=== PATIENT | male | born 1960 | race Caucasian/White ===

== ENCOUNTER 2018-05-23 09:49 | Day surgery (SDC) | payer MEDICARE, MEDICAID ==
[2018-05-22 16:43] VITALS: BMI 32.4
[2018-05-23] MEDS ORDERED: Lidocaine 1% 20 MG/2 ML PF AMP ONE (11:21)
[2018-05-23] MEDS ORDERED: Pilocarpine 1% Opht Soln ONE (11:21)
[2018-05-23] MEDS ORDERED: EPINEPHrine 1 mg/ml (1:1000) Inj ONE (11:21)
[2018-05-23] MEDS ORDERED: CA CL/K CL/NA CL 500 ML IR ONE (11:22)
[2018-05-23] MEDS ORDERED: Chondroitin/Hyaluronate Opth Syringe KIT (0.55 ml-0.5 ml) IO ONE (11:22)
[2018-05-23] MEDS ORDERED: STERILE IRRIGATING SOLUTION 45 ML IR ONE (11:22)
[2018-05-23] MEDS ORDERED: Carbachol 0.01% IO ONE (11:23)
[2018-05-23] MEDS ORDERED: Flurbiprofen 0.03% Opht SOLN OU ONE (12:00)
[2018-05-23] MEDS ORDERED: Phenylephrine 2.5% Opht Soln OD ONE (12:06)
[2018-05-23] MEDS ORDERED: Tropicamide 1% Opht 150 DROP/15 ML OD ONE (12:15)
[2018-05-23 14:35] VITALS: RESP 18
[2018-05-23] MEDS ORDERED: Midazolam 2 MG/2 ML VIAL ONE (14:57)
[2018-05-23] MEDS ORDERED: Tetracaine 0.5% Ophth 2 ML BOTTLE OD ONE (15:20)
[2018-05-23] MEDS ORDERED: Povidone Iodine Topical 10% Sol TOP ONE (15:21)
[2018-05-23] MEDS ORDERED: BSS 15 ML SOL IR ONE (15:23)
[2018-05-23] MEDS ORDERED: Pilocarpine 1% Opht Soln OD ONE (15:24)
[2018-05-23] MEDS ORDERED: Maxitrol Opht Susp OD ONE (15:25)
[2018-05-23] MEDS ORDERED: Lactated Ringer's 1,000 ML IV ONE (15:26)
[2018-05-23 17:01] VITALS: O2SAT 99
[2018-05-23 17:03] VITALS: BP 136/78; PULSE 78; TEMP 98.5
--- NOTE | 2018-05-24 12:42 | OP ---
PROCEDURE DATE: 05/23/2018 SURGEON: VINCENT FRANCISCO MD ANESTHESIOLOGIST: TIMOTHY LUNA MD ANESTHESIA: LOCAL / IV SEDATION PREOPERATIVE DIAGNOSIS: CATARACT RIGHT EYE. POSTOPERATIVE DIAGNOSIS: CATARACT RIGHT EYE. OPERATION: CLEAR CORNEAL PHACOEMULSIFICATION WITH LENS IMPLANT RIGHT EYE. PREPARATION AND PROCEDURE: After the patient was prepped and draped in the usual manner for sterile ophthalmic surgery, local IV sedation was administered; eye seals were applied to the upper and lower lid margins and an adult wire lid speculum was placed within the lids. Under microsurgical control, a two-step clear corneal incision was made into the anterior chamber. The initial incision was perpendicular to the corneal plane. The second incision with the keratome was placed at a 45-degree angle to the first incision. One cc of one percent Xylocaine MPF was instilled into the anterior chamber to achieve proper intraocular anesthesia. At this time, the Viscoelastic was injected into the anterior chamber for protection of the endothelium and for maintenance of the chamber depth. A 360-degree continuous curvilinear capsulorrhexis was performed using a pre-bent 25-gauge needle. Hydrodissection and hydrodelineation were performed using a Valle cannula and balanced salt solution. Utilizing the tip of the Valle cannula, the nucleus was rotated freely within the capsular bag. A standard one-handed phacoemulsification was utilized at this time for sculpting and rotating of the nucleus. The nucleus was fragmented in its entirety and aspirated without any consequence. A standard I&A was carried out for the residual cortical material. No residual material was noted within the capsular bag. The posterior capsule was noted to be clear. Additional Viscoelastic was injected into the capsular bag in preparation for lens implantation. After this has been satisfactorily achieved the intraocular lens injected through the corneal incision into the capsular bag. The intraocular lens was manipulated until it was properly oriented and the Viscoelastic was evacuated from the capsular bag and anterior chamber. The anterior chamber was reformed with balanced salt solution. The corneal incision was irrigated with BSS. The intraocular pressure was found to be within normal limits. This terminated the procedure. The speculum and lid drapes were removed. TobraDex ophthalmic suspension and Pilocarpine 1% drops one drop was applied to the eye. POSTOPERATIVE CONDITION: The patient was brought to the Post anesthesia Recovery area with stable vital signs. DVINCENT OROZCO MDD
== END 2018-05-23 17:14 | disposition home or self-care (01) ==
LOC: H.OPSURG 09:49
PROVIDERS: ATTEND Ophthalmology
DX: H25.811 Combined forms of age-related cataract, right eye (principal); Z86.73 Personal history of transient ischemic attack (TIA), and cerebral infarction without residual deficits; E11.9 Type 2 diabetes mellitus without complications; E78.5 Hyperlipidemia, unspecified; I10 Essential (primary) hypertension; F32.9 Major depressive disorder, single episode, unspecified; K21.9 Gastro-esophageal reflux disease without esophagitis
CPT/HCPCS: 66984; 82948; J0171; J2250; J3010; J7120

== ENCOUNTER 2018-06-06 13:53 | Emergency (ER) | payer MEDICARE, MEDICAID ==
[2018-06-06 13:53] VITALS: BMI 30.7
[2018-06-06 13:57] VITALS: PULSE 85; RESP 16; O2SAT 100
[2018-06-06] MEDS ORDERED: Sodium Chloride 0.9% 1,000 ML IV STA (14:55)
--- NOTE | 2018-06-06 15:09 | ED PDOC ---
Hyperglycemia/Hypoglycemia Time Seen by Provider: 06/06/18 14:47 Chief Complaint (Nursing): High Blood Sugar Chief Complaint (Provider): High Blood Sugar History Per: Patient History/Exam Limitations: no limitations Onset/Duration Of Symptoms: Hrs Current Symptoms Are (Timing): Still Present : The patient does not have any of the infectious symptoms listed except for those marked. Additional Complaint(s): Patient is a 58 y/o male with a PMHx of HTN, diabetes, dementia, and depression who presents to the ED for evaluation of high blood pressure onset earlier today. Patient lives in a snf and went to the hospital for same day ca taract surgery but the hospital was unable to proceed with surgery due to high blood sugar levels. The patient's snf nursery hand states that the patient has been compliant with his medication, even this morning. Patient denies hunger, urinary symptoms, dizziness, nausea, and stomach pain. PCP: Dr. Nam Mcdaniel Past Medical History Reviewed: Historical Data, Nursing Documentation, Vital Signs Vital Signs: Last Vital Signs Temp 97.3 F L 06/06/18 13:54 Pulse 85 06/06/18 13:54 Resp 16 06/06/18 13:54 BP 164/94 H 06/06/18 13:54 Pulse Ox 100 06/06/18 13:54 - Medical History PMH: Dementia, Depression, HTN Denies: Chronic Kidney Disease - Surgical History Other surgeries: peniel implant - Family History Family History: States: No Known Family Hx - Living Arrangements Living Arrangements: Senior Living/Assist Lvng - Immunization History Hx Tetanus Toxoid Vaccination: Yes Hx Influenza Vaccination: Yes Hx Pneumococcal Vaccination: Yes - Home Medications Home Medications: Ambulatory Orders Medication Instructions Recorded Ambien 5 mg PO HS 06/06/13 Clonidine 0.1 mg PO Q8 06/06/13 Fenofibrate 54 mg PO DAILY 06/06/13 Gabapentin 300 mg PO BID 06/06/13 Januvia 50 mg PO DAILY 06/06/13 Levemir 8 unit SC QAM 06/06/13 Levemir 20 unit SC HS 06/06/13 Lexapro 10 mg PO DAILY 06/06/13 Lovaza 1 gm PO BID 06/06/13 Nasonex 50 mg INH BID 06/06/13 Norvasc 10 mg PO DAILY 06/06/13 Novolog SC 06/06/13 Plavix 75 mg PO DAILY 06/06/13 Protonix 40 mg PO DAILY 06/06/13 Simvastatin 10 mg PO DAILY 06/06/13 Travatan 2.5 ml 06/06/13 - Allergies Allergies/Adverse Reactions: Allergies Allergy/AdvReac Type Severity Reaction Status Date / Time No Known Allergies Allergy Verified 06/06/18 13:54 Review of Systems ROS Statement: Except As Marked, All Systems Reviewed And Found Negative (as per HPI) Constitutional: Negative for: Other (Hungry) Gastrointestinal: Negative for: Nausea, Abdominal Pain Genitourinary Male: Negative for: Frequency Neurological: Negative for: Dizziness Physical Exam - Reviewed Nursing Documentation Reviewed: Yes Vital Signs Reviewed: Yes - Physical Exam Appears: Positive for: Well, No Acute Distress Head Exam: Positive for: ATRAUMATIC, NORMOCEPHALIC Skin: Positive for: Warm, Dry Eye Exam: Positive for: EOMI, PERRL ENT: Positive for: Pharynx Is (clear), Other (Tacky Mucous Membranes) Neck: Positive for: Painless ROM, Supple Cardiovascular/Chest: Positive for: Regular Rate, Rhythm. Negative for: Murmur Respiratory: Positive for: Normal Breath Sounds. Negative for: Respiratory Distress Gastrointestinal/Abdominal: Positive for: Soft. Negative for: Tenderness Back: Positive for: Normal Inspection Extremity: Negative for: Deformity Lymphatic: Negative for: Adenopathy Neurological/Psych: Positive for: Alert, Oriented. Negative for: Motor/Sensory Deficits - Laboratory Results Result Diagrams: 06/06/18 15:15 06/06/18 15:15 - ECG O2 Sat by Pulse Oximetry: 100 (RA) Pulse Ox Interpretation: Normal Medical Decision Making Medical Decision Making: Time: 1448 Impression: Hyperglycemia DDx includes but not limited to dehydration, electrolyte abnormality, DKA, and renal insufficiency. Plan: VBG CMP Magnesium Phosphorus Urine Dipstick CBC Glucose, POC IV Fluids Glucose, Blood, POC Time: 1745 Labs demonstrate mild elevated glucose and elevated BUN creatinine levels consistent with hydration. Given 1 L saline with improvement of glucose levels. Patient stable for discharge back to snf. Scribe Attestation: Documented by Gustabo Harrison, acting as a scribe for Giselle Gerardo MD. Provider Scribe Attestation: All medical record entries made by the Scribe were at my direction and personally dictated by me. I have reviewed the chart and agree that the record accurately reflects my personal performance of the history, physical exam, medical decision making, and the department course for this patient. I have also personally directed, reviewed, and agree with the discharge instructions and disposition. Disposition - Clinical Impression Clinical Impression: Hyperglycemia - Disposition Referrals: Nam Mcdaniel MD [Medical Doctor] - Disposition: Other Institution Disposition Time: 17:50 Condition: STABLE Additional Instructions: CONTINUE MEDICINES PRESCRIBED Instructions: Dehydration, Adult (DC), Hyperglycemia, Adult (DC)
[2018-06-06 16:23] LABS: BASO % 0.4 % (0.0-2.0); EOS # 0.3 K/uL (0.0-0.7); EOS % 3.3 % (0.0-4.0); HEMOGLOBIN 11.5 g/dL (12.0-18.0); LYMPH # 2.4 K/uL (1.0-4.3); MEAN CELL VOLUME 88.1 fl (80.0-94.0); MEAN CORPUSCULAR HEMOGLOBIN 28.6 pg (27.0-31.0); MEAN CORPUSCULAR HGB CONC 32.5 g/dL (33.0-37.0); MEAN PLATELET VOLUME 7.5 fl (7.2-11.7); MONO # 0.7 K/uL (0.0-0.8); MONO % 7.8 % (0.0-10.0); NEUT # 5.9 K/uL (1.8-7.0); NEUT % 62.5 % (50.0-75.0); RBC 4.02 Mil/uL (4.40-5.90); RED CELL DISTRIBUTION WIDTH 14.4 % (11.5-14.5); WHITE BLOOD COUNT 9.4 K/uL (4.8-10.8)
[2018-06-06 16:54] LABS: ALBUMIN 3.9 g/dL (3.5-5.0); CALCIUM 9.6 mg/dL (8.4-10.2)
[2018-06-06 18:25] VITALS: BP 150/82; TEMP 97
[2018-06-07 08:10] LABS: VENOUS BLOOD GAS BASE EXCESS 1.8 mmol/L (0.0-2.0); VENOUS BLOOD GAS PCO2 53 mmHg (40-60); VENOUS BLOOD GAS PO2 22 mm/Hg (30-55); VENOUS BLOOD PH 7.34 (7.32-7.43)
== END 2018-06-06 18:41 | disposition home or self-care (01) ==
LOC: H.ER 13:53
DX: E11.9 Type 2 diabetes mellitus without complications (principal); Z86.59 Personal history of other mental and behavioral disorders; I10 Essential (primary) hypertension; Z79.4 Long term (current) use of insulin
CPT/HCPCS: 80053; 82803; 82948; 83735; 84100; 85025; 99283; J7030

== ENCOUNTER 2018-06-13 10:37 | Day surgery (SDC) | payer MEDICARE, MEDICAID ==
[2018-06-13 11:52] VITALS: RESP 18
[2018-06-13 11:54] VITALS: BMI 33.6
[2018-06-13] MEDS ORDERED: Phenylephrine 2.5% Opht Soln OS SCH (12:00)
[2018-06-13] MEDS ORDERED: Tropicamide 1% Opht 150 DROP/15 ML OS SCH (12:00)
[2018-06-13] MEDS ORDERED: Flurbiprofen 0.03% Opht SOLN OS SCH (12:00)
[2018-06-13] MEDS ORDERED: Tetracaine 0.5% Ophth 2 ML BOTTLE ONE (12:04)
[2018-06-13] MEDS ORDERED: EPINEPHrine 1 mg/ml (1:1000) Inj ONE (12:04)
[2018-06-13] MEDS ORDERED: Maxitrol Opht Susp ONE (12:04)
[2018-06-13] MEDS ORDERED: Pilocarpine 1% Opht Soln ONE (12:05)
[2018-06-13] MEDS ORDERED: [UNRECOGNIZED DRUG - OTHER] IR ONE (12:05)
[2018-06-13] MEDS ORDERED: CA CL/K CL/NA CL 500 ML IR ONE (12:05)
[2018-06-13] MEDS ORDERED: Lidocaine 1% 20 MG/2 ML PF AMP ONE (12:05)
[2018-06-13] MEDS ORDERED: Povidone Iodine 5% Opht SOLUTION ONE (12:06)
[2018-06-13] MEDS ORDERED: Chondroitin/Hyaluronate Opth Syringe KIT (0.55 ml-0.5 ml) IO ONE ×2 (12:06→14:27)
[2018-06-13] MEDS ORDERED: Carbachol 0.01% IO ONE ×2 (12:06→14:27)
[2018-06-13] MEDS ORDERED: Lactated Ringer's 1,000 ML IV ONE (12:23)
[2018-06-13] MEDS ORDERED: Phenylephrine 2.5% Opht Soln OS ONE (12:30)
[2018-06-13] MEDS ORDERED: Tropicamide 1% Opht 150 DROP/15 ML LEFTEYE ONE (12:30)
[2018-06-13] MEDS ORDERED: Flurbiprofen 0.03% Opht SOLN OS ONE (12:30)
[2018-06-13] MEDS ORDERED: Midazolam 2 MG/2 ML VIAL ONE (14:16)
[2018-06-13] MEDS ORDERED: Neomycin/Polymyxin B Sulfates Sol for Irrigation 1 ml Amp IR ONE (14:27)
[2018-06-13] MEDS ORDERED: Tetracaine 0.5% Ophth 2 ML BOTTLE OU ONE (14:27)
[2018-06-13] MEDS ORDERED: Povidone Iodine 5% Opht SOLUTION OU ONE (14:27)
[2018-06-13] MEDS ORDERED: BSS 15 ML SOL IR ONE (14:27)
[2018-06-13] MEDS ORDERED: Lidocaine 2% PF (10 ml) Amp INJ ONE (14:27)
[2018-06-13 17:21] VITALS: BP 142/91; PULSE 94; TEMP 97.7; O2SAT 98
--- NOTE | 2018-06-14 09:31 | OP ---
PROCEDURE DATE: 06/13/2018 SURGEON: VINCENT FRANCISCO MD ANESTHESIOLOGIST: MARY CLINE MD ANESTHESIA: LOCAL / IV SEDATION PREOPERATIVE DIAGNOSIS: CATARACT LEFT EYE. POSTOPERATIVE DIAGNOSIS: CATARACT LEFT EYE. OPERATION: CATARACT EXTRACTION WITH A POSTERIOR LENS IMPLANT (PHACOEMULSIFICATION) AND ANTERIOR VITRECTOMY LEFT EYE. PREPARATION AND PROCEDURE: After facial akinesia and retrobulbar block were induced, the patient was prepped and draped in the usual manner for sterile ophthalmic surgery. An adult wire lid speculum was placed into the lid of the eye. A #4-0 silk suture was placed into the belly of the superior rectus muscle for fixation of the globe. A mini-peritomy at the 12 o'clock position was fashioned with a sharp tipped Kai scissor and atraumatic forceps. The fornix-based mini-peritomy was reflected superiorly and hemostasis was obtained with wet field bipolar cautery. A three-step incision was fashioned using a crescent blade, 2.5 mm posterior to the surgical sulcus. The anterior chamber was entered using the 3.2 blade. Viscoelastic was injected into the anterior chamber for protection of the cornea endothelium and maintenance of the anterior chamber depth. An anterior capsulotomy was performed in a capsular fashion using a pre-bent 25 gauge needle. After the capsulotomy was finished, hydrodissection and hydrodelamination was carried out. Using the Phaco-Emulsifier hand piece, phacoemulsification was carried out at this time. During phacoemulsification, a rent was noted in the posterior capsule with prolapse of syneretic vitreous into the anterior chamber. An anterior vitrectomy was carried out with the disposable Cavitron anterior vitrectomy hand piece, in addition to removal of the residual cortical material. At this time, the anterior chamber was checked for any residual vitreous strands and none were noted. A posterior chamber lens was then placed within the capsular bag. Miochol was injected into the anterior chamber for myosis and again the pupil was reexamined for any evidence of vitreous and none was noted. The Viscoelastic was evacuated from the anterior chamber using the irrigation and aspiration hand piece. Balanced salt solution was injected into the anterior chamber for reestablishment of the anterior chamber space. The wound again was checked for any leaks and none were noted. The conjunctiva was reflected superiorly up to the surgical sulcus. The #4-0 silk suture was removed and Maxitrol drops were applied to the eye and a light patch was then applied. POSTOPERATIVE CONDITION: The patient was brought to the Post anesthesia Recovery area with stable vital signs. VINCENT FRANCISCO MD
== END 2018-06-13 17:20 ==
LOC: H.OPSURG 10:37
PROVIDERS: ATTEND Ophthalmology
DX: H25.812 Combined forms of age-related cataract, left eye (principal); I25.10 Atherosclerotic heart disease of native coronary artery without angina pectoris; Z86.73 Personal history of transient ischemic attack (TIA), and cerebral infarction without residual deficits; E11.9 Type 2 diabetes mellitus without complications; E66.9 Obesity, unspecified; I10 Essential (primary) hypertension; F32.9 Major depressive disorder, single episode, unspecified
CPT/HCPCS: 66984; 67005; 82948; J0171; J2250; J3010; J7120; V2632